=== PATIENT | male | born 1980 | race Caucasian/White ===

== ENCOUNTER 2016-12-15 20:36 | Emergency (ER) | payer SELFPAY ==
--- NOTE | ~2016-12-15 | CT2 ---
[facility] A Service of [facility] RADIOLOGY TEXT RESULTS PATIENT: RUSS BURKETT LOCATION: SED : 84 UNIT #: [id number] AGE: [address]: Slava Driscoll MD SEX: M ORDER DR: [id number] [place] [id number] E MR#: [id number] Acc #: [id number] NAME: RUSS BURKETT : 1980 SEX: M STUDY DATE/TIME: 12/15/2016 22:14 UNIT: SED ROOM: STUDY DESCRIPTION: CT Abd and Pelv W Cont Attending Physician: Slava Driscoll M.D. Ordering Physician: Slava Drsicoll M.D. MEDICAL IMAGING REPORT This report is preliminary unless electronic signature is present. EXAM CT abdomen and pelvis, 12/15/2016 at 22:14 INDICATION Fell off roof today at 10:38 a.m. Low back pain. Pain radiates down into the left testicle and groin. Pain rates 6 out of 10. TECHNIQUE Axial images were obtained through the abdomen and pelvis following IV contrast administration. Multiplanar reformats were obtained. No comparison. This CT exam was performed with one or more of the following radiation dose reduction techniques: automatic exposure control, adjustment of mA and/or kV according to patient size, and iterative reconstruction. FINDINGS ABDOMEN: The lung bases are clear. Gallbladder is normal. There is no biliary obstruction. Solid organs are normal. No adenopathy or free fluid is seen. The unopacified GI tract is normal. PELVIS: The bladder is normal. No free fluid is seen. The unopacified GI tract including the appendix is normal. There are no fractures in the abdomen, pelvis, or lumbar spine. IMPRESSION Normal CT the abdomen and pelvis. No evidence of acute traumatic injury. Solid organs are normal. There is no free fluid. There are no fractures in the abdomen, pelvis, or lumbar spine. [facility] A Service of [facility] RADIOLOGY TEXT RESULTS PATIENT: RUSS BURKETT LOCATION: SED : [birth year] UNIT #: [id number] AGE: [address]: Slava Driscoll MD SEX: M ORDER DR: Dictated by... Sheldon Rodriguez Jr., M.D. THIS IS AN ELECTRONICALLY VERIFIED REPORT Sheldon Rodriguez Jr., M.D. at 12/16/2016 6:01 AM CATRINA/amparo TD: 12/16/2016 05:11 JOB #: [id number] MEDICAL IMAGING REPORT Page 1 of 1
--- NOTE | ~2016-12-15 | US115 ---
[facility] A Service of [facility] RADIOLOGY TEXT RESULTS PATIENT: RUSS BURKETT LOCATION: SED : [birth year] UNIT #: [id number] AGE: [address]: Slava Driscoll MD SEX: M ORDER DR: [id number] [address] [address] [id number] E MR#: [id number] Acc #: [id number] NAME: RUSS BURKETT : 1980 SEX: M STUDY DATE/TIME: 12/15/2016 20:56 UNIT: SED ROOM: STUDY DESCRIPTION: US Scrotum and Contents Attending Physician: Slava Driscoll M.D. Ordering Physician: Slava Driscoll M.D. MEDICAL IMAGING REPORT This report is preliminary unless electronic signature is present. EXAM Scrotal ultrasound and contents, 12/15/2016 HISTORY Fell off roof 10 hours ago. Left testicle pain since fall. Evaluate for torsion. FINDINGS Real-time ultrasonography of the scrotal contents performed. Esposito-scale, color Doppler, Doppler pulse-wave interrogation utilized. The right testis shows arterial and venous flow. It measures 4.30 cm x 2.04 cm x 2.96 cm. It is normal in contour and echotexture with no evidence of mass lesion or traumatic abnormality. The right epididymis is unremarkable. Trace amount of fluid in the right hemiscrotum. The left testis shows arterial and venous flow. It measures approximately 5.39 cm x 2.70 cm x 2.67 cm. It is normal in contour with no evidence of mass lesion or traumatic abnormality. Homogeneous echotexture. The left epididymis is unremarkable. There is a very small amount of free fluid in the left hemiscrotum. IMPRESSION 1. The testes are normal in size, contour and echotexture bilaterally with no mass lesion or traumatic abnormality suggested. There is arterial and venous flow in bilateral testes. 2. Bilateral epididymis normal. 3. Minimal free fluid in the bilateral hemiscrotum. Dictated by... [facility] A Service [facility] RADIOLOGY TEXT RESULTS PATIENT: RUSS BURKETT LOCATION: [facility] : [birth year] UNIT #: [id number] AGE: [address]: Slava Driscoll MD SEX: M ORDER DR: Slava Villatoro M.D. THIS IS AN ELECTRONICALLY VERIFIED REPORT Slava Villatoro M.D. at 12/19/2016 12:40 PM Carrie TD: 12/16/2016 03:24 JOB #: [id number] MEDICAL IMAGING REPORT Page 1 of 1
--- NOTE | ~2016-12-15 | CR243 ---
[facility]. [facility] A Service of [facility] RADIOLOGY TEXT RESULTS PATIENT: RUSS BURKETT LOCATION: SED : [birth year] UNIT #: [id number] AGE: [address]: Slava Driscoll MD SEX: M ORDER DR: [id number] [place] [id number] E MR#: [id number] Acc #: [id number] NAME: RUSS BURKETT : 1980 SEX: M STUDY DATE/TIME: 12/15/2016 22:04 UNIT: SED ROOM: STUDY DESCRIPTION: CR Thoracic Spine 3 Views Attending Physician: Slava Driscoll M.D. Ordering Physician: Slava Driscoll M.D. MEDICAL IMAGING REPORT This report is preliminary unless electronic signature is present. EXAM Thoracic spine series 12/15/2016 HISTORY Trauma. Fell off 14 feet roof today around 10:30 a.m. Left shoulder pain, left back pain, pain shooting into left testicle, C collar in place. FINDINGS AP, lateral and swimmer's views of the thoracic spine are presented. Normal bony mineralization. Alignment is normal. Vertebral body heights, intervertebral disc space heights normal. No evidence of fracture. Central lung zones are clear. Cardiomediastinal contours normal. Visualized ribs intact. Bowel gas pattern in upper abdomen unremarkable. Dictated by... Slava Villatoro M.D. THIS IS AN ELECTRONICALLY VERIFIED REPORT Slava Villatoro M.D. at 12/19/2016 12:40 PM ASIA/elroy TD: 12/16/2016 05:55 JOB #: [id number] MEDICAL IMAGING REPORT Page 1 of 1
--- NOTE | ~2016-12-15 | CR71 ---
[facility]. [facility] A Service of [facility] RADIOLOGY TEXT RESULTS PATIENT: RUSS BURKETT LOCATION: SED : [birth year] UNIT #: [id number] AGE: [address]: Slava Driscoll MD SEX: M ORDER DR: [id number] [place] [id number] E MR#: [id number] Acc #: [id number] NAME: RUSS BURKETT : 1980 SEX: M STUDY DATE/TIME: 12/15/2016 22:04 UNIT: SED ROOM: STUDY DESCRIPTION: CR Chest Single View Attending Physician: Slava Driscoll M.D. Ordering Physician: Slava Driscoll M.D. MEDICAL IMAGING REPORT This report is preliminary unless electronic signature is present. EXAM Portable chest x-ray, 12/15/2016 HISTORY Trauma. Fell off 14 feet tall roof today around 10:30 a.m. Left shoulder pain, lower back pain, pain shooting into left testicle, C-collar in triage. FINDINGS AP radiograph of the chest is presented. No comparisons. No acute-appearing bony abnormality. Heart and mediastinum normal in size and contour. The lungs are well inflated bilaterally and clear. Dictated by... Slava Villatoro M.D. THIS IS AN ELECTRONICALLY VERIFIED REPORT Slava Villatoro M.D. at 12/19/2016 12:40 PM ASIA/amparo TD: 12/16/2016 05:09 JOB #: [id number] MEDICAL IMAGING REPORT Page 1 of 1
--- NOTE | ~2016-12-15 | CT52 ---
[facility]. [facility] A Service of [facility] RADIOLOGY TEXT RESULTS PATIENT: RUSS BURKETT LOCATION: SED : [birth year] UNIT #: [id number] AGE: [address]: Slava Driscoll MD SEX: M ORDER DR: [id number] [address] [address] [id number] E MR#: [id number] Acc #: [id number] NAME: RUSS BURKETT : 1980 SEX: M STUDY DATE/TIME: 12/15/2016 22:12 UNIT: SED ROOM: STUDY DESCRIPTION: CT Cervical Spine Wo Cont Attending Physician: Slava Driscoll M.D. Ordering Physician: Slava Driscoll M.D. MEDICAL IMAGING REPORT This report is preliminary unless electronic signature is present. EXAM CT of the cervical spine 12/15/2016 HISTORY Pain. Fell off 14 feet tall roof today at around 10:30 a.m. Left shoulder pain, lower back pain, pain shooting into left testicle. C collar placed in triage. TECHNIQUE This CT examination was performed with one or more of the following radiation dose reduction techniques: automatic exposure control, adjustment of mA and/or kV according to patient size, and iterative reconstruction. FINDINGS CT cervical spine performed. Bone soft tissue windows reviewed. Sagittal, coronal reconstructions performed. Visualized portions of brain unremarkable. The visualized nasopharyngeal, oral pharyngeal, pharyngeal mucosal, retropharyngeal spaces, larynx, subglottic airway, superior mediastinum, lung apices, thyroid, submandibular, parotid glands are unremarkable. No adenopathy. No indication of traumatic soft tissue cervical abnormality. There is minimal approximately 1 mm anterolisthesis C2 on C3 and perhaps 1 mm anterolisthesis of C3 on C4. Vertebral body heights normal. Intervertebral disc space heights show mild generalized narrowing. The facet joint relationships are normal. No traumatic fracture. No indication of traumatic malalignment. No significant disc bulge. Spinal canal diameter normal. Neural foramina patent without evidence of exiting nerve impingement. IMPRESSION 1. There is no indication of traumatic fracture or malalignment. Minimal perhaps 1 mm grade 1 anterolistheses C2 on C3 and C3 on C4. 2. Spinal canal diameter is normal. No significant disc bulge is seen. [facility]. [facility] A Service of [facility] RADIOLOGY TEXT RESULTS PATIENT: RUSS BURKETT LOCATION: [facility] : [birth year] UNIT #: [id number] AGE: [address]: Slava Driscoll MD SEX: M ORDER DR: The neural foramina are patent with no evidence of exiting nerve impingement. 3. No traumatic paraspinal soft tissue abnormality suggested. Dictated by... Slava Villatoro M.D. THIS IS AN ELECTRONICALLY VERIFIED REPORT Slava Villatoro M.D. at 12/19/2016 12:40 PM ASIA/elroy TD: 12/16/2016 06:27 JOB #: [id number] MEDICAL IMAGING REPORT Page 1 of 1
[2016-12-15 20:33] LABS: BASOPHIL% 0.4 % (0-2.5); EOSINOPHIL% 0.4 % (0.0-7.0); HEMATOCRIT 43.3 % (38.0-50.0); LYMPHOCYTE# 1.7 X10e3 (1.0-3.5); LYMPHOCYTE% 24.6 % (17.0-45.0); MEAN CELL VOLUME 93.2 FL (83-96); MEAN CORPUSCULAR HEMOGLOBIN 32.2 PG (28-34); MEAN CORPUSCULAR HGB CONC 34.6 g/dL (30-36); MEAN PLATELET VOLUME 8.2 FL (6.5-11.5); MONOCYTE# 0.4 X10e3 (0-1.0); MONOCYTE% 6.4 % (3.0-12.0); NEUTROPHIL# 4.7 X10e3 (1.5-7.1); NEUTROPHIL% 68.2 % (40-75); PLATELET COUNT 214 X10e3 (140-420); RED BLOOD COUNT 4.64 X10e (3.90-5.60); RED CELL DISTRIBUTION WIDTH 13.1 % (11.0-15.5); WHITE BLOOD COUNT 6.9 X10e3 (4.0-10.5)
[~2016-12-15 20:36] MED LIST: NO MEDICATIONS
[2016-12-15 20:37] LABS: DIFF IND NO
[2016-12-15 20:42] LABS: INR 1.1; PROTHROMBIN TIME (PATIENT) 12.5 SECONDS (9.5-12.4)
[2016-12-15 20:51] LABS: ALBUMIN SERUM 5.2 g/dL (3.5-5.0); BILIRUBIN, DIRECT 0.1 mg/dL (0.0-0.2); BILIRUBIN,INDIRECT 0.7 mg/dL (0.0-0.9); BILIRUBIN,TOTAL 0.8 mg/dL (0.2-2.0); CALCIUM SERUM 9.1 mg/dL (8.4-10.2); CREATININE SERUM 1.1 mg/dL (0.6-1.4); GLOM FILT RATE Estimated 87.1 mL/min (>60); POTASSIUM 3.8 mmol/L (3.5-5.1); PROTEIN TOTAL SERUM 8.6 g/dL (6.0-8.3)
[2016-12-15 21:16] LABS: URINE APPEARANCE CLEAR; URINE BILIRUBIN NEG (NEG); URINE BLOOD NEG (NEG); URINE COLOR YELLOW; URINE GLUCOSE NEG (NORM); URINE KETONE NEG (NEG); URINE LEUKOCYTE ESTERASE NEG (NEG); URINE NITRATE NEG (NEG); URINE PROTEIN NEG (NEG); URINE UROBILINOGEN 0.2 MG/DL (NORM)
[2016-12-15 21:17] LABS: MICRO INDICATED? NO; URINE SOURCE CLEAN CATCH
== END 2016-12-15 23:14 | disposition home or self-care (01) ==
LOC: SED 20:36
PROVIDERS: Emergency Medicine
DX: S33.5XXA Sprain of ligaments of lumbar spine, initial encounter (principal); S23.3XXA Sprain of ligaments of thoracic spine, initial encounter; F17.200 Nicotine dependence, unspecified, uncomplicated; W13.2XXA Fall from, out of or through roof, initial encounter
CPT/HCPCS: 36415; 71010; 72072; 72125; 74177; 76870; 80048; 80076; 81003; 85025; 85610; 85730; 93976; 99284; Q9967

== ENCOUNTER 2017-02-11 21:54 | Emergency (ER) | payer SELFPAY ==
[2017-02-11 23:02] LABS: BASOPHIL# 0.1 X10e3 (0-0.3); BASOPHIL% 1.1 % (0-2.5); EOSINOPHIL# 0.1 X10e3 (0-0.7); EOSINOPHIL% 0.9 % (0.0-7.0); HEMATOCRIT 38.2 % (38.0-50.0); HEMOGLOBIN 13.4 gm/dL (13.0-16.0); LYMPHOCYTE# 2.7 X10e3 (1.0-3.5); MEAN CELL VOLUME 93.1 FL (83-96); MEAN CORPUSCULAR HEMOGLOBIN 32.6 PG (28-34); MEAN CORPUSCULAR HGB CONC 35.1 g/dL (30-36); MEAN PLATELET VOLUME 9.1 FL (6.5-11.5); MONOCYTE# 0.5 X10e3 (0-1.0); MONOCYTE% 5.5 % (3.0-12.0); NEUTROPHIL# 5.6 X10e3 (1.5-7.1); NEUTROPHIL% 62.5 % (40-75); PLATELET COUNT 215 X10e3 (140-420); RED BLOOD COUNT 4.11 X10e (3.90-5.60)
[2017-02-11 23:04] LABS: DIFF IND NO
[2017-02-11 23:17] LABS: URINE SOURCE CLEAN CATCH
[2017-02-11 23:19] LABS: ALBUMIN SERUM 4.3 g/dL (3.5-5.0); BILIRUBIN, DIRECT 0.1 mg/dL (0.0-0.2); BILIRUBIN,INDIRECT 0.5 mg/dL (0.0-0.9); BILIRUBIN,TOTAL 0.6 mg/dL (0.2-2.0); BUN/CREATININE RATIO 6.47; CALCIUM SERUM 8.9 mg/dL (8.4-10.2); CREATININE SERUM 1.7 mg/dL (0.6-1.4); GLOM FILT RATE Estimated 51.5 mL/min (>60); POTASSIUM 3.9 mmol/L (3.5-5.1); PROTEIN TOTAL SERUM 7.2 g/dL (6.0-8.3)
[2017-02-11 23:20] LABS: MICRO INDICATED? YES; URINE APPEARANCE CLEAR; URINE BILIRUBIN NEG (NEG); URINE BLOOD TRACE-INTACT (NEG); URINE COLOR YELLOW; URINE GLUCOSE NEG (NORM); URINE KETONE NEG (NEG); URINE LEUKOCYTE ESTERASE NEG (NEG); URINE NITRATE NEG (NEG); URINE PH 6.5 (5-8); URINE PROTEIN NEG (NEG); URINE SPECIFIC GRAVITY <=1.005 (1.003-1.035); URINE UROBILINOGEN 0.2 MG/DL (NORM)
[2017-02-11 23:22] LABS: CULTURE INDICATED? NO; URINE BACTERIA NEG (NEG); URINE RBC 0-2 /[HPF] (0-2); URINE SQUAMOUS EPITHELIAL CELL FEW /[HPF]; URINE WBC NEG /[HPF] (0-5)
[2017-02-11 23:30] LABS: AMPHETAMINE NEG (NEG); BARBITURATES NEG (NEG); BENZODIAZEPINES NEG (NEG); COCAINE NEG (NEG); MARIJUANA NEG (NEG); OPIATES NEG (NEG); TRICYCLIC ANTIDEPRESSANTS NEG (NEG); U METHADONE NEG (NEG)
== END 2017-02-12 00:12 | disposition left against medical advice (07) ==
LOC: SED 21:54
PROVIDERS: Emergency Medicine
DX: M54.5 Low back pain (principal); F17.200 Nicotine dependence, unspecified, uncomplicated
CPT/HCPCS: 36415; 80048; 80076; 80307; 81003; 85025; 96374; 96375; 99284; J1885; J2930